=== PATIENT | female | born 1995 | race African-American/Black ===

== ENCOUNTER 2021-04-23 14:51 | Emergency (ER) | payer MEDICAID ==
[~2021-04-23] VITALS: Ht 165.1 cm; Wt 59.0 kg
[2021-04-23 15:30] VITALS: BP 121/70
[2021-04-23] MEDS ORDERED: LORAZEPAM 1MG TABLET PO ONE (15:45)
[2021-04-23] MEDS ORDERED: FAMOTIDINE 20MG/2ML VIAL IV ONE (15:45)
[2021-04-23] MEDS ORDERED: MAGNESIUM/ALUMINUM HYDROXIDE/SIMETHICONE 30ML UDC PO ONE (15:45)
[2021-04-23] MEDS ORDERED: ZIPRASIDONE MESYLATE 20MG/VIAL IM ONE (17:30)
== END 2021-04-23 17:39 | disposition left against medical advice (07) ==
LOC: ER 14:51
DX: F22 Delusional disorders (principal); F41.9 Anxiety disorder, unspecified
CPT/HCPCS: 99283